=== PATIENT | male | born 1975 | race Caucasian/White ===

== ENCOUNTER 2017-03-24 23:36 | Emergency (ER) | payer BC ==
[~2017-03-24] VITALS: Ht 182.9 cm; Wt 112.9 kg
[~2017-03-24 23:36] MED LIST: FLEXERIL10 MG PO; NOHOMEMEDS; PERCOCET 5/31 TABLET PO; SUBOXONE 8 MG-1 EAC2 SL; TOBRAMYCIN SULFA5 ML RIGHT EYE; TORADOL10 MG PO; WELLBUTRIN SR150 MG PO
[2017-03-25] MEDS ORDERED: KEFLEX500 MG PO (01:09)
[2017-03-25 01:23] VITALS: BP 148/82
== END 2017-03-25 01:24 | disposition left against medical advice (07) ==
LOC: EME 23:36
DX: R60.0 Localized edema (principal); J45.909 Unspecified asthma, uncomplicated; F32.9 Major depressive disorder, single episode, unspecified; F17.200 Nicotine dependence, unspecified, uncomplicated; Z79.891 Long term (current) use of opiate analgesic
CPT/HCPCS: 93971; 99281; 99283